=== PATIENT | female | born 1995 | race Caucasian/White ===

== ENCOUNTER 2019-10-30 11:50 | Outpatient (CLI) | payer BC ==
--- NOTE | 2019-10-30 14:07 | Diagnostic Imaging Report ---
Indication: Cough Technique: 2 views of the chest Comparison: None Findings: Lungs and pleural spaces are clear. The heart size is normal. The bones are unremarkable. No significant interim change. Impression: Negative
== END 2019-10-30 13:50 | disposition home or self-care (01) ==
LOC: RAD 11:50
DX: R05 Cough (principal)
CPT/HCPCS: 71046